=== PATIENT | male | born 1965 | race Caucasian/White ===

== ENCOUNTER 2023-03-22 08:31 | Emergency (ER) | payer OTHER ==
[2023-03-22 09:03] LABS: Absolute Lymphocytes (CBC) 1.3 K/uL (0.7-4.9); Hematocrit 43.4 % (39.6-49.0); Lymphocytes % 17.9 % (15.3-44.8); MPV 8.8 fL (7.6-11.3); Platelets 139 thou/uL (152-406); RBC Red Blood Cell Count 4.93 M/uL (4.33-5.43)
[2023-03-22 09:08] LABS: Urine Bacteria None Seen /HPF (<20); Urine Bilirubin NEGATIVE (Negative); Urine Blood 1+ (Negative); Urine Clarity Clear (Clear); Urine Color Light-Yellow (Yellow); Urine Glucose NEGATIVE (Negative); Urine Mucus Slight /HPF (None Seen); Urine Protein NEGATIVE (Negative); Urine RBC 21-50 /HPF (None Seen); Urine Urobilinogen Normal (Normal); Urine pH 5.5 (5.0-7.0)
--- NOTE | 2023-03-22 09:17 | RAD REPORT ---
EXAM DESCRIPTION: CT - Stone Protocol - 03/22/2023 9:01 am CLINICAL HISTORY: Abdominal pain. COMPARISON: None. TECHNIQUE: Computed axial tomography of the abdomen pelvis was obtained without oral or IV contrast. Lack of IV and oral contrast limits evaluation of solid organs, appendix, bowel, and vessels. Patel l reformatted images were obtained and reviewed. All CT scans are performed using dose optimization technique as appropriate and may include automated exposure control or mA/KV adjustment according to patient size. FINDINGS: 5 millimeter calculus proximal left ureter. Mild to moderate left hydronephrosis. Tiny nonobstructing right renal calculus. The liver, spleen, pancreas and adrenals appear grossly normal There is no evidence of diverticulitis. Prostate gland is moderately enlarged. Bladder wall thickening. This may be secondary to a chronic ou tlet obstruction. Small bilateral pleural effusions IMPRESSION: 5 millimeter calculus proximal left ureter resulting in mild to moderate left hydronephr osis
[2023-03-22 09:19] LABS: Albumin 3.9 g/dL (3.4-5.0); Bilirubin Total 0.7 mg/dL (0.2-1.0); Potassium 4.4 mEq/L (3.5-5.1); Protein, Total 7.4 g/dL (6.4-8.2)
[2023-03-22] MEDS ORDERED: NA CHLORIDE 0.9% 1,000 ML ONE (09:22)
[2023-03-22] MEDS ORDERED: KETOROLAC 30 MG/ML INJ ONE (09:22)
[2023-03-22] MEDS ORDERED: ONDANSETRON 4 MG/2 ML VIAL ONE (09:22)
--- NOTE | 2023-03-22 09:27 | EDPHYS ---
Physician Documentation [facility] Name: Adiel West Age: 57 yrs Sex: Male : 1965 Arrival Date: 03/22/2023 Time: 08:31 Bed 14 Private MD: ED Physician Russell Diop HPI: 03/22 08:45 This 57 yrs old Male presents to ER via Ambulatory with complaints of Possible Kidney jh7 Stone. 08:45 Onset: The symptoms/episode began/occurred 5 day(s) ago. Associated signs and symptoms: jh7 Pertinent positives: abdominal pain, Pertinent negatives: chest pain, fever, shortness of breath, vomiting, wheezing. Patient complains of left flank pain for the past 5 days which is now radiating to his left lower quadrant. History of BPH and hypertension. Also reports nausea. Reports that all of his doctors are in [place].. Historical: - Allergies: 08:46 No Known Allergies; hb - Home Meds: 08:46 atorvastatin 80 mg oral tablet daily [Active]; losartan 50 mg oral tablet 2 times per hb day [Active]; tamsulosin 0.4 mg oral capsule [Active]; Aspirin Oral [Active]; - PMHx: 08:46 Hyoertension; hb - Immunization history:: Adult Immunizations unknown. - Social history:: Smoking status: unknown. ROS: 08:45 Constitutional: Negative for fever, chills, and weight loss, Eyes: Negative for injury, jh7 pain, redness, and discharge, Neck: Negative for injury, pain, and swelling, Cardiovascular: Negative for chest pain, palpitations, and edema, Respiratory: Negative for shortness of breath, cough, wheezing, and pleuritic chest pain, Back: Negative for injury and pain, MS/Extremity: Negative for injury and deformity, Skin: Negative for injury, rash, and discoloration, Neuro: Negative for headache, weakness, numbness, tingling, and seizure, 08:45 Abdomen/GI: Positive for nausea, Negative for vomiting, diarrhea, constipation, 08:45 : Positive for flank pain, hematuria, Negative for burning with urination, 08:45 All other systems are negative, Exam: 08:45 Head/Face: Normocephalic, atraumatic. ENT: Nares patent. No nasal discharge, no jh7 septal abnormalities noted. Tympanic membranes are normal and external auditory canals are clear. Oropharynx with no redness, swelling, or masses, exudates, or evidence of obstruction, uvula midline. Mucous membranes moist. Neck: Trachea midline, no thyromegaly or masses palpated, and no cervical lymphadenopathy. Supple, full range of motion without nuchal rigidity, or vertebral point tenderness. No Meningismus. Cardiovascular: Regular rate and rhythm with a normal S1 and S2. No gallops, murmurs, or rubs. Normal PMI, no JVD. No pulse deficits. Respiratory: Lungs have equal breath sounds bilaterally, clear to auscultation and percussion. No rales, rhonchi or wheezes noted. No increased work of breathing, no retractions or nasal flaring. Abdomen/GI: Soft, non-tender, with normal bowel sounds. No distension or tympany. No guarding or rebound. No evidence of tenderness throughout. 08:45 Skin: Warm, dry with normal turgor. Normal color with no rashes, no lesions, and no evidence of cellulitis. MS/ Extremity: Pulses equal, no cyanosis. Neurovascular intact. Full, normal range of motion. Neuro: Awake and alert, GCS 15, oriented to person, place, time, and situation. Motor strength 5/5 in all extremities. Sensory grossly intact. Normal gait. 08:45 Constitutional: The patient appears alert, awake, in obvious pain, 08:45 Back: CVA tenderness, that is moderate, is noted on the left, 08:45 : CVA tenderness, on the left, Vital Signs: 08:45 BP 173 / 88; Pulse 48; Resp 16; Temp 97.7(O); Pulse Ox 100% ; Weight 90.72 kg; Height 5 hb ft. 6 in. ; Pain 6/10; 09:30 BP 134 / 72; Pulse 47; Resp 15; Pulse Ox 98% ; Pain 4/10; jl7 09:43 Pain 4/10; jl7 10:20 BP 137 / 80; Pulse 50; Resp 15; Pulse Ox 98% ; Pain 1/10; jl7 08:45 Body Mass Index 32.28 (90.72 kg, 167.64 cm) hb 08:45 Pain Scale: Adult hb 09:30 Pain Scale: Adult jl7 09:43 Pain Scale: Adult jl7 10:20 Pain Scale: Adult jl7 MDM: 08:34 Patient medically screened. [facility] 09:25 Differential diagnosis: UTI, nephrolithiasis, lower back strain. Data reviewed: vital [facility] signs, nurses notes, lab test result(s), radiologic studies, CT scan. I considered the following discharge prescriptions or medication management in the emergency department Medications were administered in the Emergency Department. See MAR. Historians other than the Patient: Spouse/Significant Other: . Care significantly affected by the following chronic conditions: Hypertension. Counseling: I had a detailed discussion with the patient and/or guardian regarding the historical points, exam findings, and any diagnostic results supporting the discharge/admit diagnosis, the need for outpatient follow up, a urologist, to return to the emergency department if symptoms worsen or persist or if there are any questions or concerns that arise at home. Response to treatment: the patient's symptoms have markedly improved after treatment. Special discussion: Based on the history and exam findings, there is no indication for further emergent testing or inpatient evaluation. I discussed with the patient/guardian the need to see the urologist for further evaluation of the symptoms. 03/22 08:43 Order name: CBC with Diff; Complete Time: 09:20 [facility] 03/22 08:43 Order name: CMP; Complete Time: 09:20 [facility] 03/22 08:43 Order name: Lipase; Complete Time: :20 [facility] 03/22 08:43 Order name: Urinalysis w/ reflexes; Complete Time: :20 [facility] 03/22 08:43 Order name: CT Stone Protocol; Complete Time: :20 [facility] 03/22 08:43 Order name: IV Saline Lock; Complete Time: 08:57 [facility] 03/22 08:43 Order name: Labs collected and sent; Complete Time: 08:57 [facility] 03/22 09:26 Order name: Recheck Blood Pressure; Complete Time: 09:43 [facility] Administered Medications: 09:14 Drug: NS 0.9% IV 1000 ml IV at 1 bolus Per protocol; 1000 mL bolus Route: IV; Rate: 1 hb bolus; Site: left antecubital; 10:20 Follow up: IV Status: Completed infusion; IV Intake: 1000ml [facility] 09:14 Drug: TORadol - Ketorolac IVP 30 mg IVP once Route: IVP; Site: left antecubital; hb 09:43 Follow up: Pain 09/10 Adult; Response: No adverse reaction; Pain is decreased 7 09:14 Drug: Ondansetron IVP 4 mg IVP once; over 2 minutes Route: IVP; Site: left antecubital; hb 10:20 Follow up: Response: No adverse reaction [facility] 09:43 Drug: morphine IVP or IV 4 mg IVP once over 4 mins Route: IVP; Infused Over: 4 mins; 7 Site: left antecubital; 10:19 Follow up: Response: No adverse reaction; Pain is decreased [facility] Disposition: 15:30 Co-signature as Attending Physician, Russell Diop MD I agree with the assessment and 3 plan of care. Disposition Summary: 03/22/23 09:27 Discharge Ordered Notes: Location: Home [facility] Problem: new [facility] Symptoms: have improved [facility] Condition: Stable [facility] Diagnosis - Other hydronephrosis [facility] - Nephrolithiasis [facility] Followup: [facility] - With: Private Physician - When: 2 - 3 days - Reason: Recheck today's complaints Discharge Instructions: - Discharge Summary Sheet [facility] - Kidney Stones [facility] - Renal Colic [facility] - Hydronephrosis [facility] - Dietary Guidelines to Help Prevent Kidney Stones [facility] Forms: - Medication Reconciliation Form [facility] - Thank You Letter [facility] - Antibiotic Education [facility] - Prescription Opioid Use [facility] - Patient Portal Instructions [facility] - Leadership Thank You Letter [facility] Prescriptions: - acetaminophen-codeine 300-15 mg Oral tablet - take 2 tablet ORAL route every 8 hours As needed as needed for pain; 30 tablet; [facility] Refills: 0, Product Selection Permitted - ketorolac 10 mg Oral tablet - take 1 tablet ORAL route every 6 hours for 3 days as needed for pain; 12 7 tablet; Refills: 0, Product Selection Permitted - Cipro 500 mg Oral Tablet - take 1 tablet ORAL route every 12 hours for 10 days; 20 tablet; Refills: 0, [facility] Product Selection Permitted Signatures: Dispatcher [employer] Russell Dahl MD MD 3 Aleida Flannery RN RN Mary Gonzalez RN RN jl7 Keke Fournier, ELECTRIC TRUCK CRANE OPERATOR [employer] CRANE OPERATOR [facility]
--- NOTE | 2023-03-22 09:27 | ER ---
Nurse's Notes [facility] Name: Adiel West Age: 57 yrs Sex: Male : 1965 Arrival Date: 03/22/2023 Time: 08:31 Bed 14 Private MD: Diagnosis: Other hydronephrosis;Nephrolithiasis Presentation: 03/22 08:45 Chief complaint: Left flank millan and nausea x 5 days. Coronavirus screen: At this time, hb the client does not indicate any symptoms associated with coronavirus-19. Ebola Screen: No symptoms or risks identified at this time. Initial Sepsis Screen: Does the patient meet any 2 criteria? No. Patient's initial sepsis screen is negative. Does the patient have a suspected source of infection? No. Patient's initial sepsis screen is negative. Risk Assessment: Do you want to hurt yourself or someone else? Patient reports no desire to harm self or others. Onset of symptoms was March 17, 2023. 08:45 Method Of Arrival: Ambulatory hb 08:45 Acuity: ABBI 3 hb Historical: - Allergies: 08:46 No Known Allergies; hb - Home Meds: 08:46 atorvastatin 80 mg oral tablet daily [Active]; losartan 50 mg oral tablet 2 times per hb day [Active]; tamsulosin 0.4 mg oral capsule [Active]; Aspirin Oral [Active]; - PMHx: 08:46 Hyoertension; hb - Immunization history:: Adult Immunizations unknown. - Social history:: Smoking status: unknown. Screenin:40 [facility] ED Fall Risk Assessment (Adult) Score/Fall Risk Level 0 - 2 = Low Risk jl7 Oriented to surroundings, Maintained a safe environment. Abuse screen: Denies threats or abuse. Denies injuries from another. Nutritional screening: No deficits noted. Tuberculosis screening: No symptoms or risk factors identified. Assessment: 09:40 General: Appears in no apparent distress. uncomfortable, Behavior is calm, cooperative, jl7 appropriate for age. Pain: Complains of pain in left flank Pain currently is 4 out of 10 on a pain scale. at worst was 6 out of 10 on a pain scale. Neuro: Level of Consciousness is awake, alert, obeys commands, Oriented to person, place, time, situation. Cardiovascular: Patient's skin is warm and dry. Respiratory: Airway is patent Respiratory effort is even, unlabored, Respiratory pattern is regular, symmetrical. GI: Abdomen is round non-distended, Bowel sounds present X 4 quads. Abd is soft and non tender. Derm: Skin is pink, warm \T\ dry. 10:20 Reassessment: Pt reports decreased pain, rated 1/10 at discharge. jl7 Vital Signs: 08:45 BP 173 / 88; Pulse 48; Resp 16; Temp 97.7(O); Pulse Ox 100% ; Weight 90.72 kg; Height 5 hb ft. 6 in. ; Pain 6/10; 09:30 BP 134 / 72; Pulse 47; Resp 15; Pulse Ox 98% ; Pain 4/10; jl7 09:43 Pain 4/10; jl7 10:20 BP 137 / 80; Pulse 50; Resp 15; Pulse Ox 98% ; Pain 1/10; jl7 08:45 Body Mass Index 32.28 (90.72 kg, 167.64 cm) hb 08:45 Pain Scale: Adult hb 09:30 Pain Scale: Adult jl7 09:43 Pain Scale: Adult jl7 10:20 Pain Scale: Adult jl7 ED Course: 08:34 Patient arrived in ED. mr 08:34 Keke Fournier, [facility] jh7 08:34 Russell Diop MD is Attending Physician. jh7 08:46 Triage completed. hb 08:48 Arm band placed on. hb 08:57 CBC with Diff Sent. hb 08:57 CMP Sent. hb 08:57 Lipase Sent. hb 08:57 Urinalysis w/ reflexes Sent. hb 08:57 Inserted saline lock: 20 gauge in left antecubital area, using aseptic technique. Blood hb collected. 09:01 CT Stone Protocol In Process Unspecified. EDMS 09:30 Mary Gonzalez, AMIE is Primary Nurse. jl7 09:40 Patient has correct armband on for positive identification. Provided Education on: use jl7 of urine strainer. 10:23 No provider procedures requiring assistance completed. IV discontinued, intact, jl7 bleeding controlled, No redness/swelling at site. Pressure dressing applied. Administered Medications: 09:14 Drug: NS 0.9% IV 1000 ml IV at 1 bolus Per protocol; 1000 mL bolus Route: IV; Rate: 1 hb bolus; Site: left antecubital; 10:20 Follow up: IV Status: Completed infusion; IV Intake: 1000ml jl7 09:14 Drug: TORadol - Ketorolac IVP 30 mg IVP once Route: IVP; Site: left antecubital; hb 09:43 Follow up: Pain 4/10 Adult; Response: No adverse reaction; Pain is decreased jl7 09:14 Drug: Ondansetron IVP 4 mg IVP once; over 2 minutes Route: IVP; Site: left antecubital; hb 10:20 Follow up: Response: No adverse reaction jl7 09:43 Drug: morphine IVP or IV 4 mg IVP once over 4 mins Route: IVP; Infused Over: 4 mins; jl7 Site: left antecubital; 10:19 Follow up: Response: No adverse reaction; Pain is decreased jl7 Medication: 09:40 VIS not applicable for this client. jl7 Intake: 10:20 IV: 1000ml; Total: 1000ml. jl7 Outcome: 09:27 Discharge ordered by . [facility] 10:23 Discharged to home ambulatory, with family, [facility] 10:23 Condition: stable 10:23 Discharge instructions given to patient, family, Instructed on discharge instructions, follow up and referral plans. medication usage, Demonstrated understanding of instructions, follow-up care, medications, Prescriptions given X 3, 10:25 Patient left the ED. jl7 Signatures: Dispatcher [employer] EDCO Lois Solano, Steve Reg mr Aleida Flannery, RN RN Mary Tyson RN RN jl7 Keke Fournier, [employer] TRUCK DRIVER [employer] DRIVER [facility] Corrections: (The following items were deleted from the chart) 08:48 08:45 Pulse 48bpm; Resp 16bpm; Pulse Ox 100%; Temp 97.7F Oral; 90.72 kg; Height 5 ft. 6 hb in.; BMI: 32.2; Pain 6/10, Adult; hb
[2023-03-22] MEDS ORDERED: MORPHINE 4 MG/ML SYR ONE (09:48)
[2023-03-22 10:44] VITALS: TEMP 97.7
[2023-03-22 10:49] VITALS: O2SAT 98
[2023-03-22 10:51] VITALS: BP 137/80
== END 2023-03-22 10:25 | disposition home or self-care (01) ==
LOC: ER 08:31
DX: N13.2 Hydronephrosis with renal and ureteral calculous obstruction (principal); I10 Essential (primary) hypertension
CPT/HCPCS: 96361; 85025; 81001; 36415; 83690; 80053; 76377; 74176; 96375; 96374; 99284; J2405; J7030